=== PATIENT | female | born 1975 | race African-American/Black ===

== ENCOUNTER 2018-10-15 13:18 | Emergency (ER) | payer SELFPAY ==
[~2018-10-15] VITALS: Ht 149.9 cm; Wt 59.1 kg
[2018-10-15 13:25] VITALS: Ht 149.9 cm; Wt 59.1 kg
[2018-10-15] MEDS ORDERED: CYCLOBENZAPRINE5 MG PO (13:28)
[2018-10-15] MEDS ORDERED: CYCLOBENZAPRINE10 MG PO (15:53)
[2018-10-15] MEDS ORDERED: EC-NAPROSYN500 MG PO (15:53)
[2018-10-15 16:48] VITALS: BP 126/73
== END 2018-10-15 16:48 | disposition home or self-care (01) ==
LOC: D.ER 13:18
DX: M79.605 Pain in left leg (principal)